=== PATIENT | male | born 1945 | race Caucasian/White ===

== ENCOUNTER → 2020-10-26 09:04 | Outpatient (CLI) | payer OTHER, SELFPAY ==
--- NOTE | 2020-10-26 | DI.ECHO.S_ITS ---
[place] [facility]---------+ [facility] +---------+ : : [address] : [address] : : : : [id number] : : : : Phone: [phone]+ Echocardiogram Report + + :Name: NORMA CURIEL Study Date: 10/26/2020 Height: 64 in : :[facility] Weight: 215 lb : : Gender: Male BSA: 2.0 m2 : :: 1945 Age: 75 yrs BP: 161/92 mmHg: :Reason For Study: ENCOUNTER FOR GENERAL ADULT MEDICAL : :EXAMINATION : :Ordering Physician: MINH REYNOLDS : :Felipa Performed By: Helen Ernandez : :Referring: MINH REYNOLDS P.A-C : + + Interpretation Summary 1) Normal left ventricular size with mildly to moderately reduced systolic function (EF 40-45%). 2) Normal right ventricular size with low normal function. There is a pacemaker lead in the right ventricle. 3) There is a bioprosthetic aortic valve that is well seated and opens well (mean gradient 7.6mmHg). No aortic regurgitation present. 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 5) No prior Echo available for comparison. Procedure: A two-dimensional transthoracic echocardiogram with color flow and Doppler was performed. The study quality was technically difficult. There is no prior echocardiogram noted for this patient. The patient has a paced rhythm. The heart rate ranged between 62-73 bpm during the study. Left Ventricle: The left ventricle is normal in size. The ejection fraction is estimated to be 40-45%. There is a mild dyssynchronous contraction pattern due to the paced rhythm. Diastolic function could not be accurately assessed due to paced rhythm. Right Ventricle: The right ventricle is normal size. There is a pacemaker lead in the right ventricle. Right ventricular systolic function is at the lower limits of normal. Atria: The left atrial size is normal. The right atrium is mildly dilated. There is a catheter/pacemaker lead seen in the right atrium. The interatrial septum is not well visualized. Mitral Valve: There is mild to moderate mitral annular calcification. The mitral valve leaflets appear mildly thickened, but open well. There is mild mitral regurgitation. Aortic Valve: There is a bioprosthetic aortic valve. There is no aortic valve stenosis. No aortic regurgitation is present. Tricuspid Valve: The tricuspid valve is not well visualized, but is grossly normal. There is trace tricuspid regurgitation. Pulmonary artery pressures cannot be estimated because of the lack of a measurable TR jet velocity but the IVC suggests a CVP of around 3 mmHg. Pulmonic Valve: The pulmonic valve is not well visualized. There is no pulmonic valvular regurgitation. Great Vessels: The ascending aorta is mildly enlarged. The IVC is of normal diameter and collapses greater than 50% with a sniff. This suggests a low right atrial pressure of 3 mm Hg. Pericardium/ Pleura There is an anterior echo-free space consistent with a fat pad. There is no pericardial effusion. There is no pleural effusion. MMode/2D Measurements & Calculations LVIDd: 5.5 cm LVOT diam: 2.4 cm LVIDs: 4.4 cm asc Aorta Diam: 4.2 cm FS: 21.2 % EPSS: 1.2 cm IVSd: 1.2 cm LVPWd: 1.1 cm LV wilks. diameter/BSA (cm/m^2): 2.8 LV sys. diameter/BSA (cm/m^2): 2.2 LA A2 area: 21.8 cm2 RA long axis: 5.1 cm LA A4 area: 21.4 cm2 RA area: 20.9 cm2 LA length (vol): 6.1 cm RA vol: 72.2 ml LA vol: 65.2 ml RA : 35.8 ml/m2 LA vol index: 32.3 ml/m2 IVC diam: 1.6 cm RVD1 (basal): 3.3 cm TAPSE: 1.7 cm Doppler Measurements & Calculations Ao V2 max: 182.8 cm/sec LVOT Max Adrian: 63.6 cm/sec Ao V2 mean: 129.0 cm/sec LV V1 max P.6 mmHg Ao max P.4 mmHg LV V1 VTI: 14.7 cm Ao mean P.6 mmHg BERE(I,D): 1.8 cm2 Ao V2 VTI: 37.8 cm BERE(V,D): 1.6 cm2 sev ratio: 0.39 BERE indexed to BSA (cm^2/m^2): 0.89 MV E max adrian: 68.0 cm/sec PA V2 max: 58.0 cm/sec MV A max adrian: 88.5 cm/sec PA V2 mean: 39.3 cm/sec MV E/A: 0.77 PA mean P.69 mmHg Med Peak E' Adrian: 5.8 cm/sec PA pr(Accel): 51.6 mmHg E/E' med: 11.7 Lat Peak E' Adrian: 5.1 cm/sec E/E' lat: 13.4 E/e' average: 12.6 MV dec time: 0.23 sec SV(LVOT): 67.5 ml Reading Physician:12:49 PM
== END ==
PROVIDERS: Referring Provider Orthopaedic Surgery; Visit Provider Physician Assistant
DX: Z00.00 Encounter for general adult medical examination without abnormal findings (principal); I34.0 Nonrheumatic mitral (valve) insufficiency; I77.89 Other specified disorders of arteries and arterioles; Z95.2 Presence of prosthetic heart valve; Z95.0 Presence of cardiac pacemaker
CPT/HCPCS: 93306